=== PATIENT | female | born 1960 | race Caucasian/White ===

== ENCOUNTER 2025-06-25 09:23 | Emergency (ER) | payer MEDICARE, BC ==
[2025-06-25] MEDS: Ondansetron 4 MG/2 ML SDV IVPUSH ONE (09:30)
[2025-06-25] MEDS: fentaNYL 50 MCG/ML SDV IVPUSH ONE (09:45)
[2025-06-25] MEDS: fentaNYL 50 MCG/ML SDV ONE (10:18)
[2025-06-25] MEDS: Ondansetron 4 MG/2 ML SDV ONE (10:18)
[2025-06-25 10:20] LABS: A/G RATIO 1.1 (1.2-2.2); ALANINE AMINOTRANSFERASE,ALT 28 U/L (12-78); ASPARTATE AMNIOTRANSFERASE,AST 21 U/L (15-37); BASOPHILS ABSOLUTE AUTO 0.06 K/uL (0.00-0.10); BASOPHILS PERCENT AUTO 0.5 % (0.1-1.3); BILIRUBIN TOTAL 0.6 mg/dL (0.2-1.0); BLOOD UREA NITROGEN,BUN 21 mg/dL (7-18); CARBON DIOXIDE,CO2 23 mmol/L (21-32); CHLORIDE,CL 103 mmol/L (100-108); CREATININE 0.8 mg/dL (0.6-1.0); EOSINOPHILS ABSOLUTE AUTO 0.13 K/uL (0.00-0.40); EOSINOPHILS PERCENT AUTO 1.1 % (0.0-5.4); ESTIMATED GFR 82 mL/min (>60); GLUCOSE RANDOM 164 mg/dL (74-106); IMMATURE GRAN ABSOLUTE AUTO 0.04 K/uL (0.00-0.23); IMMATURE GRAN PERCENT AUTO 0.3 % (0.0-0.7); LYMPHOCYTES ABSOLUTE AUTO 3.03 K/uL (0.8-3.3); LYMPHOCYTES PERCENT AUTO 25.5 % (11.4-47.7); MONOCYTES ABSOLUTE AUTO 0.63 K/uL (0.20-0.90); MONOCYTES PERCENT AUTO 5.3 % (3.3-12.6); NEUTROPHILS ABSOLUTE AUTO 8.00 K/uL (1.0-7.6); NEUTROPHILS PERCENT AUTO 67.3 % (40.0-78.1); PLATELET COUNT,PLT 429 K/uL (130-375); POTASSIUM,K 3.2 mmol/L (3.6-5.2); PROTEIN TOTAL,TP 7.3 g/dL (6.4-8.2); RED BLOOD CELL COUNT 4.84 M/uL (3.77-5.24); SODIUM,NA 140 mmol/L (140-148); WHITE BLOOD CELL COUNT,WBC 11.9 K/uL (3.2-11.0)
[2025-06-25 10:21] LABS: INR 1.0
[2025-06-25] MEDS: Sodium Chloride 0.9% 10 ML Syringe FLUSH PRN (10:42)
[2025-06-25] MEDS: Iopamidol 755 Mg/ML 100 ML Bottle IV SCH (10:42)
[2025-06-25 13:13] LABS: AMPHETAMINES SCREEN, URINE NEGATIVE (NEGATIVE); APPEARANCE,URINE CLEAR (CLEAR); GLUCOSE,URINE NEGATIVE (NEGATIVE); METHADONE SCREEN, URINE NEGATIVE (NEGATIVE); METHAMPHETAMINES SCREEN, URINE NEGATIVE (NEGATIVE); OCCULT BLOOD,URINE NEGATIVE (NEGATIVE); OXYCODONE SCREEN,URINE NEGATIVE (NEGATIVE); PROPOXYPHENE SCREEN,URINE NEGATIVE (NEGATIVE); THC SCREEN,URINE 50 NG/ML NEGATIVE (NEGATIVE)
[2025-06-25 13:19] LABS: SQUAMOUS EPITHELIAL CELLS,UR RARE /HPF; UROTHELIAL CELLS,URINE NOT SEEN /HPF
[2025-06-25 14:08] VITALS: BP 127/77; PULSE 82
== END 2025-06-25 14:20 ==
LOC: JP.ED 09:23
DX: R41.3 Other amnesia (principal); R51.9 Headache, unspecified; E86.0 Dehydration; R79.1 Abnormal coagulation profile; Z79.899 Other long term (current) drug therapy
CPT/HCPCS: 36415; 70450; 70460; 70496; 70498; 80053; 80305; 80307; 81001; 82947; 85025; 85610; 86140; 86618; 93005; 96361; 96374; 96375; 99285; J2405; J3010; J7030; Q9967